=== PATIENT | female | born 2000 | race Caucasian/White ===

== ENCOUNTER 2023-09-28 15:40 | Emergency (ER) | payer OTHER ==
[2023-09-28 15:55] VITALS: BP 124/68; O2SAT 100
--- NOTE | 2023-09-28 16:14 | ED Physician Documentation ---
PD HPI BACK PAIN - Stated complaint Stated Complaint: BACK INJ - Chief complaint Chief Complaint: Back Pain - History obtained from History obtained from: Patient - History of Present Illness Timing - onset: Yesterday Timing - duration: Days (2) Timing - details: Gradual onset Pain level max: 4 Pain level now: 3 Location: Lower, Left Quality: No: Spasm Associated symptoms: No: Fever, Weakness, Numbness, Incontinent of urine, Unable to urinate, Hematuria, Incontinent of stool Improves with: Rest Worsened by: Movement Contributing factors: No: Trauma, Anticoagulated, Cancer, IVDA Similar symptoms before: Has not had sx before - Additional information Additional information: 22-year-old female presents to the emergency department with lower left back pain that radiates down the left leg. Worse with walking, better with rest. No spasm. No urinary or fecal incontinence. She states that she injured it at work while lifting boxes. She works at [employer]. She denies any similar symptoms previously. Denies any possibility of . Has not taken anything for pain. She states she was told by her boss to come in for evaluation. 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: No Does the pt have substance abuse?: No - Immunizations Immunizations are current?: Yes - POLST Patient has POLST: No PD ED PE NORMAL - Vitals Vital signs reviewed: Yes - General General: Alert and oriented X 3, No acute distress - HEENT HEENT: PERRL, Moist mucous membranes - Neck Neck: Supple, no meningeal sign - Cardiac Cardiac: RRR, Strong equal pulses - Respiratory Respiratory: No respiratory distress, Clear bilaterally - Abdomen Abdomen: Soft, Non tender, Non distended - Back Back: No spinal TTP, Other (No midline tenderness to palpation or percussion. No step-off or deformity.) - Derm Derm: Warm and dry - Extremities Extremities: No edema, No calf tenderness / cord, Other (Normal bilateral lower extremity patellar and ankle jerk reflexes. Normal great toe extension bilaterally. 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 No focal neurological deficits. No evidence of cauda equina, epidural abscess. No red flags. No indication for emergent imaging. Will place on anti-inflammatories and steroids for home and have her follow-up with her PCP for further care. Ambulating with a normal gait here. Patient counseled regarding signs and symptoms for which I believe and urgent re-evaluation would be necessary. Patient with good understanding of and agreement to plan and is comfortable going home at this time This document was made in part using voice recognition software. While efforts are made to proofread this document, sound alike and grammatical errors may occur. Departure - Departure Disposition: Home, Self Care Clinical Impression: Sciatica Qualifiers: Laterality: left Qualified Code(s): M54.32 - Sciatica, left side Condition: Good Instructions: ED Sciatica Follow-Up: your,doctor in 1 week [Other] [facility] [Provider Group] Prescriptions: methylPREDNISolone [Medrol] 4 mg PO DAILY #1 each Ibuprofen [Motrin] 800 mg PO Q8H PRN #30 tablet PRN Reason: PAIN &/OR FEVER Comments: Your prescription was sent to [facility] in [place]. Please follow-up with your doctor in 1 week for repeat evaluation. Your doctor will need to release you back to work. You can also go to the walk-in clinics for this. Forms: PCP List, Activity restrictions
== END 2023-09-28 16:23 | disposition home or self-care (01) ==
LOC: ED 15:40
DX: M54.32 Sciatica, left side (principal); X50.0XXA Overexertion from strenuous movement or load, initial encounter; Y99.0 Civilian activity done for income or pay; F17.200 Nicotine dependence, unspecified, uncomplicated
CPT/HCPCS: 1040M; 99282; 99283

== ENCOUNTER 2024-01-04 19:12 | Emergency (ER) | payer BC, OTHER ==
[2024-01-04 20:27] LABS: BASOPHILS % (AUTO) 0.4 %; EOSINOPHILS # (AUTO) 0.1 10^3/uL (0.0-0.7); EOSINOPHILS % (AUTO) 1.9 %; HCT - HEMATOCRIT 40.2 % (37.0-47.0); HGB - HEMOGLOBIN 13.5 g/dL (12.0-16.0); LYMPHOCYTES # (AUTO) 1.9 10^3/uL (1.5-3.5); LYMPHOCYTES % (AUTO) 27.8 %; MEAN CORPUSCULAR HEMOGLOBIN 31.2 pg (27.0-31.0); MEAN CORPUSCULAR HGB CONC 33.6 g/dL (32.0-36.0); MEAN CORPUSCULAR VOLUME 92.8 fL (81.0-99.0); MEAN PLATELET VOLUME 9.1 fL (7.9-10.8); MONOCYTES # (AUTO) 0.6 10^3/uL (0.0-1.0); MONOCYTES % (AUTO) 9.4 %; NEUTROPHILS % (AUTO) 60.2 %; PLT - PLATELET COUNT 264 10^3/uL (130-450); RED BLOOD COUNT 4.33 10^6/uL (4.20-5.40); RED CELL DISTRIBUTION WIDTH 12.4 % (12.0-15.0); WHITE BLOOD COUNT 6.7 x10^3/uL (4.8-10.8)
[2024-01-04 20:27] LABS: BILIRUBIN,URINE NEGATIVE (NEGATIVE); GLUCOSE, URINE (UA) NEGATIVE (NEGATIVE); KETONES,URINE (UA) NEGATIVE (NEGATIVE); LEUKOCYTE ESTERASE, URINE NEGATIVE (NEGATIVE); NITRITE,URINE NEGATIVE (NEGATIVE); OCCULT BLOOD,URINE NEGATIVE (NEGATIVE); PROTEIN,URINE NEGATIVE (NEGATIVE); UROBILINOGEN,URINE 0.2 (NORMAL) E.U./dL (NORMAL)
[2024-01-04 20:28] LABS: HCG UR QUAL NEGATIVE
[2024-01-04 20:29] LABS: CLARITY,URINE CLEAR (CLEAR)
[2024-01-04 20:50] LABS: ALBUMIN 4.5 g/dL (3.2-5.5); ALBUMIN/GLOBULIN RATIO 1.6 (1.0-2.2); BILIRUBIN,TOTAL 0.2 mg/dL (0.2-1.0); CALCIUM 9.5 mg/dL (8.5-10.3); CREATININE 0.7 mg/dL (0.6-1.3); POTASSIUM 3.2 mmol/L (3.5-4.5); TOTAL PROTEIN 7.4 g/dL (6.4-8.9)
--- NOTE | 2024-01-04 21:34 | ED Physician Documentation ---
History of Present Illness - Stated complaint Stated Complaint: ABD PX - Chief complaint Chief Complaint: Abd Pain - History obtained from History obtained from: Patient - Additonal information Additional information: The patient comes to the emergency department chief complaint of bilateral lateral upper abdominal pain for the last several days. The patient states that she has not had any nausea or vomiting. No fevers. She states sometimes she feels the dull pain radiate down into her low abdomen but mostly, it is just up on the sides near the bottom of her rib cage. The patient states she has been constipated which is not unusual for her and that her last bowel movement was about 5 days ago. The patient denies any abdominal surgeries. She states she is about to get her period in a week or so. She is not known to be . The patient denies any respiratory symptoms. Nothing seems to make the pain better or worse. The patient states she had some dysuria and what felt like a urinary tract infection for the last several days but this resolved on its own. PD PAST MEDICAL HISTORY - Past Medical History Cardiovascular: None Respiratory: None Neuro: None Endocrine/Autoimmune: None GI: None PRIMARY CARE PEDIATRICIAN: None : None HEENT: None Psych: None Musculoskeletal: None Derm: None - Past Surgical History Past Surgical History: No - Present Medications Home Medications: Ambulatory Orders Medication Instructions Recorded Confirmed Sertraline [Zoloft] 75 mg PO DAILY 01/04/24 - Allergies Allergies/Adverse Reactions: Allergies Allergy/AdvReac Type Severity Reaction Status Date / Time acetaminophen AdvReac Unknown Verified 01/04/24 20:02 - Social History Does the pt smoke?: Yes Smoking Status: Current every day smoker Does the pt drink ETOH?: No Does the pt have substance abuse?: No - Immunizations Immunizations are current?: Yes - POLST Patient has POLST: No PD ED PE NORMAL - Vitals Vital signs reviewed: Yes - General General: Alert and oriented X 3, No acute distress, Well developed/nourished - HEENT HEENT: Atraumatic, PERRL, EOMI, Moist mucous membranes - Neck Neck: Supple, no meningeal sign - Cardiac Cardiac: RRR, No murmur - Respiratory Respiratory: No respiratory distress, Clear bilaterally - Abdomen Abdomen: Soft, Non tender, Non distended - Derm Derm: Normal color, Warm and dry, No rash - Extremities Extremities: No deformity, No edema - Neuro Neuro: Alert and oriented X 3 - Psych Psych: Normal mood, Normal affect Results - Vitals Vitals: Vital Signs - 24 hr 01/04/24 19:52 Temperature 36.9 C Heart Rate 90 Respiratory 16 Rate Blood Pressure 135/79 H O2 Saturation 100 Oxygen O2 Source Room air - Labs Labs: Laboratory Tests 01/04/24 01/04/24 01/04/24 20:00 20:00 20:21 WBC 6.7 RBC 4.33 Hgb 13.5 Hct 40.2 MCV 92.8 MCH 31.2 H MCHC 33.6 RDW 12.4 Plt Count 264 MPV 9.1 Neut # (Auto) 4.0 Lymph # (Auto) 1.9 [place] # (Auto) 0.6 Eos # (Auto) 0.1 Baso # (Auto) 0.0 Absolute Nucleated RBC 0.00 Nucleated RBC % 0.0 Sodium Potassium Chloride Carbon Dioxide Anion Gap BUN Creatinine Estimated GFR (MDRD) Glucose Calcium Total Bilirubin AST ALT Alkaline Phosphatase Total Protein Albumin Globulin Albumin/Globulin Ratio Lipase Urine Color YELLOW Urine Clarity CLEAR Urine pH 6.0 Ur Specific [place] 1.020 Urine Protein NEGATIVE Urine Glucose (UA) NEGATIVE Urine Ketones NEGATIVE Urine Occult Blood NEGATIVE Urine Nitrite NEGATIVE Urine Bilirubin NEGATIVE Urine Urobilinogen 0.2 (NORMAL) Ur Leukocyte Esterase NEGATIVE Ur Microscopic Review NOT INDICATED Urine Culture Comments NOT INDICATED Urine HCG, Qual NEGATIVE 01/04/24 20:21 WBC RBC Hgb Hct MCV MCH MCHC RDW Plt Count MPV Neut # (Auto) Lymph # (Auto) [place] # (Auto) Eos # (Auto) Baso # (Auto) Absolute Nucleated RBC Nucleated RBC % Sodium 138 Potassium 3.2 L Chloride 106 Carbon Dioxide 25 Anion Gap 7.0 BUN 15 Creatinine 0.7 Estimated GFR (MDRD) 106 Glucose 106 H Calcium 9.5 Total Bilirubin 0.2 AST 13 ALT 13 Alkaline Phosphatase 64 Total Protein 7.4 Albumin 4.5 Globulin 2.9 Albumin/Globulin Ratio 1.6 Lipase 21 Urine Color Urine Clarity Urine pH Ur Specific [place] Urine Protein Urine Glucose (UA) Urine Ketones Urine Occult Blood Urine Nitrite Urine Bilirubin Urine Urobilinogen Ur Leukocyte Esterase Ur Microscopic Review Urine Culture Comments Urine HCG, Qual PD Medical Decision Making - ED course Complexity details: reviewed results, re-evaluated patient, considered differential, d/w patient ED course: The patient had a benign abdomen and otherwise had atypical abdominal pain. She had a negative workup including CBC, ER abdominal panel, UA, and test. I discussed with her that I suspect the discomfort is from constipation, given the location and the fact that she has not had a bowel movement in the last 5 days. We have discussed using [id number] stool softeners and laxatives to help with this. We have discussed the usual indications for return. No emergent imaging indicated at this time. Departure - Departure Disposition: 01 Home, Self Care Clinical Impression: Abdominal pain Qualifiers: Abdominal location: upper abdomen, unspecified Qualified Code(s): R10.10 - Upper abdominal pain, unspecified Constipation Qualifiers: Constipation type: unspecified constipation type Qualified Code(s): K59.00 - Constipation, unspecified Condition: Stable Instructions: ED Constipation, ED Abdominal Pain Female Non-Specific Abdominal Pain Comments: Your labs and urinalysis look great. I suspect that your discomfort is due to constipation, given you have not had a bowel movement in the last several days and the location of the pain is consistent with distention of the large intestine. It is important that you follow-up with your primary doctor as needed. If you find that your symptoms are drastically worsening, please seek medical reevaluation. In the meantime, you should get the [id number] laxative and stool softener as we discussed to help your bowels move. You should also eat a high-fiber diet with lots of fresh fruits and vegetables and whole grains. Forms: PCP List
[2024-01-04 21:47] VITALS: BP 121/79; O2SAT 98
== END 2024-01-04 21:45 | disposition home or self-care (01) ==
LOC: ED 19:12
DX: K59.00 Constipation, unspecified (principal); F17.200 Nicotine dependence, unspecified, uncomplicated
CPT/HCPCS: 36415; 80053; 81001; 81003; 81025; 83690; 85025; 87086; 99283